=== PATIENT | female | born 1985 | race Hispanic/Latino ===

== ENCOUNTER 2022-06-09 22:44 | Emergency (ER) | payer BC, MEDICAID ==
[~2022-06-09] VITALS: Ht 157.5 cm; Wt 97.0 kg
[~2022-06-09 22:44] MED LIST: AMOXICILLIN875 MG OR; FLEXERIL PO; NAPROSYN500 MG PO; NO; TRAMADOL HCL50 MG PO; ZPAK PO
[2022-06-09] MEDS ORDERED: LOSARTAN POTAS100 MG PO (23:50)
[2022-06-09] MEDS ORDERED: AMLODIPINE BESYL5 MG PO (23:51)
[2022-06-09] MEDS ORDERED: [UNRECOGNIZED DRUG - REMARK] (23:52)
[2022-06-10 00:44] VITALS: BP 140/90
== END 2022-06-10 01:00 | disposition home or self-care (01) | DRG 866 ==
LOC: ED 22:44
DX: B34.9 Viral infection, unspecified (principal); I10 Essential (primary) hypertension; R73.03 Prediabetes; Z20.822 Contact with and (suspected) exposure to COVID-19

== ENCOUNTER 2023-10-13 19:33 | Observation (INO) | payer SELFPAY ==
[~2023-10-13] VITALS: Ht 158.8 cm; Wt 98.8 kg
[~2023-10-13 19:33] MED LIST changes: +AMLODIPINE BESYL5 MG PO; +LOSARTAN POTAS100 MG PO; +[UNRECOGNIZED DRUG - REMARK]
[2023-10-13] MEDS ORDERED: SODIUM CHLORIDE 0.9% 1,000 ML IV ONE ×2 (19:50→23:50)
[2023-10-13 20:07] LABS: BASO% 0.5 % (0-3); EOS% 1.7 % (0-8); HEMATOCRIT 40.3 % (37.0-47.0); HEMOGLOBIN 13.8 g/dl (12.0-16.0); IMMATURE GRANULOCYTES 0.3 % (0.0-5.0); LYMPH% 27.9 % (15-41); MEAN CELL VOLUME 93.9 fL CALC (80.0-100.0); MEAN CORPUSCULAR HGB 32.2 pG CALC (26.0-32.0); MEAN CORPUSCULAR HGB CONC 34.2 g/dL CAL (32.0-36.0); MONO% 6.7 % (2-13); NEUT# 6.64 thou/uL (2.00-7.15); NEUT% 62.9 % (42-76); RED BLOOD COUNT 4.29 mill/uL (4.20-5.60)
[2023-10-13 20:21] LABS: ALBUMIN 4.5 g/dL (3.2-5.0); ALKALINE PHOSPHATASE 77 u/l (38-126); ANION GAP 10 (6-22 (CALC)); BILIRUBIN, TOTAL 0.4 mg/dL (0.02-1.3); BUN 17 mg/dL (7-17); BUN/CREATININE RATIO 19 (12-20 (CALC)); CARBON DIOXIDE 24 mmol/l (22-30); CHLORIDE 109 mmol/l (95-108); CREATININE 0.9 mg/dL (0.5-1.0); ESTIMATED GFR 85 ML/MIN (>=90 (CALC)); POTASSIUM 3.7 mmol/l (3.5-5.1); SGOT/AST 46 u/l (14-36); SODIUM 139 mmol/l (137-146); TOTAL PROTEIN 7.8 g/dL (6.3-8.2)
[2023-10-13] MEDS ORDERED: ACETAMINOPHEN 325 MG/TAB PO ONE (21:00)
[2023-10-13] MEDS ORDERED: MEPERIDINE HCL 50 MG/ML IV ONE (22:30)
[2023-10-14] VITALS (17 sets, daily range): BP systolic 114–175; BP diastolic 70–102
[2023-10-14 02:42] LABS: URINE BILIRUBIN - DIPSTICK Negative (NEGATIVE); URINE BLOOD DIPSTICK Moderate (NEGATIVE); URINE COLOR Yellow; URINE GLUCOSE - DIPSTICK Negative (NEGATIVE); URINE KETONE Negative (NEGATIVE); URINE LEUK ESTERASE Negative (NEGATIVE); URINE NITRITE - DIPSTICK Negative (Negative); URINE PH 5.5 (4.5-8.0); URINE PROTEIN - DIPSTICK Negative (NEG-TRACE); URINE SPECIFIC GRAVITY >=1.030; URINE UROBILINOGEN - DIPSTICK 0.2 E.U./dL (0.2)
[2023-10-14 02:48] LABS: URINE SQUAMOUS EPITHELIAL CELL RARE EPI/hpf (0-FEW); URINE WBC 0-2 WBC/hpf (0-5)
[2023-10-14] MEDS ORDERED: SODIUM CHLORIDE 0.9% 1,000 ML IV ONE (03:58)
[2023-10-14] MEDS ORDERED: KETOROLAC TROMETHAMINE 30 MG/ML SDV IV ONE (06:00)
[2023-10-14] MEDS ORDERED: SODIUM CHLORIDE 0.9% 1,000 ML IV PRN (09:20)
[2023-10-15 04:28] VITALS: BP 127/73
[2023-10-15 05:32] LABS: BASO% 0.5 % (0-3); EOS% 1.7 % (0-8); HEMATOCRIT 36.5 % (37.0-47.0); HEMOGLOBIN 12.3 g/dl (12.0-16.0); IMMATURE GRANULOCYTES 0.2 % (0.0-5.0); MEAN CELL VOLUME 96.1 fL CALC (80.0-100.0); MEAN CORPUSCULAR HGB 32.4 pG CALC (26.0-32.0); MEAN CORPUSCULAR HGB CONC 33.7 g/dL CAL (32.0-36.0); MONO% 6.1 % (2-13); NEUT# 4.79 thou/uL (2.00-7.15); NEUT% 58.5 % (42-76); RED BLOOD COUNT 3.8 mill/uL (4.20-5.60); RED CELL DISTRI WIDTH 11.9 % (11.5-15.5)
[2023-10-15 05:46] LABS: ALBUMIN 3.4 g/dL (3.2-5.0); BILIRUBIN, TOTAL 0.3 mg/dL (0.02-1.3); CREATININE 0.8 mg/dL (0.5-1.0); MAGNESIUM 1.9 mg/dL (1.6-2.3); POTASSIUM 4.2 mmol/l (3.5-5.1)
[2023-10-15 06:31] VITALS: BP 125/71
[2023-10-15 07:44] VITALS: BP 125/71
[2023-10-15 10:32] VITALS: BP 180/97
[2023-10-15 10:48] VITALS: BP 180/97
== END 2023-10-15 12:33 | disposition home or self-care (01) | DRG 312 ==
LOC: ED 19:33 → ED-I 10-14 06:14 → ED 10-14 06:31 → MS2 10-14 06:32
PROVIDERS: Family Medicine; Nurse Practitioner Family; ADMIT Student in an Organized Health Care Education/Training Program; ATTEND Student in an Organized Health Care Education/Training Program
DX: I95.1 Orthostatic hypotension (principal); I10 Essential (primary) hypertension; R73.03 Prediabetes; Z20.822 Contact with and (suspected) exposure to COVID-19
CPT/HCPCS: G0378